=== PATIENT | male | born 1990 | race Caucasian/White ===

== ENCOUNTER 2021-08-15 19:35 | Emergency (ER) | payer MEDICAID ==
[~2021-08-15] VITALS: Ht 177.8 cm; Wt 70.5 kg
[2021-08-15 20:26] LABS: COVID AG,FIA SOURCE NASAL SWAB
[2021-08-15] MEDS ORDERED: IPRATROPIUM BROMIDE 0.5 MG/2.5 ML NEB SOLUTION NEB ONE (20:30)
[2021-08-15] MEDS ORDERED: ALBUTEROL SULFATE 2.5 MG/0.5 ML NEB SOLUTION NEB ONE (20:30)
[2021-08-15] MEDS ORDERED: AZIT250T9 PO (21:40)
[2021-08-15] MEDS ORDERED: ALBU8HFA IH (21:41)
[2021-08-15 21:51] LABS: INFLUENZA TYPE A NEGATIVE FOR TYPE A (NEGATIVE); INFLUENZA TYPE B NEGATIVE FOR TYPE B (NEGATIVE)
[2021-08-15 22:34] VITALS: BP 160/86
== END 2021-08-15 22:35 | disposition home or self-care (01) ==
LOC: EMS 19:39
DX: J40 Bronchitis, not specified as acute or chronic (principal); F12.90 Cannabis use, unspecified, uncomplicated; F17.210 Nicotine dependence, cigarettes, uncomplicated; Z20.822 Contact with and (suspected) exposure to COVID-19
CPT/HCPCS: 71046; 87804; 99284; J7613